=== PATIENT | female | born 1995 | race Two or more races ===

== ENCOUNTER 2024-01-29 04:38 | Inpatient (IN) | payer MEDICAID, OTHER ==
[~2024-01-29] VITALS: Ht 167.6 cm; Wt 77.8 kg
[2024-01-29 06:21] LABS: Chloride 110 mmol/L (98-107); Potassium 4.1 mmol/L (3.5-5.1); Sodium 146 mmol/L (136-145)
[2024-01-29 06:22] LABS: Anion Gap 13 (5-15); Calcium 10.1 mg/dL (8.7-10.4); Carbon Dioxide 23 mmol/L (20-31)
[2024-01-29 06:27] LABS: BUN/Creatinine Ratio 11.1 (10.0-20.0); Blood Urea Nitrogen 8 mg/dL (9-23); Glucose 116 mg/dL (74-106)
[2024-01-29 06:28] LABS: Blood Alcohol 161.8 mg/dL (<10)
[2024-01-29] MEDS: MORPHINE SULFATE 4 MG/ML SYR/VIAL IV ONE ×2 (06:57→12:26)
[2024-01-29] MEDS: ONDANSETRON HCL 4 MG/2 ML VIAL IV ONE ×2 (07:00→12:26)
[2024-01-29 07:40] VITALS: PULSE 113; RESP 21; O2SAT 92
[2024-01-29 07:47] LABS: Basophils # (auto) 0 10 ^3/uL (0-0.2); Basophils % (auto) 0.1 % (0.0-2.0); Eosinophils # (auto) 0 10 ^3/uL (0-0.8); Hematocrit 42.7 % (36.0-46.0); Lymphocytes # (auto) 1.4 10 ^3/uL (0.4-5.4); Lymphocytes % (auto) 10.9 % (10.0-50.0); Mean Corpuscular Hemoglobin 33.4 pg (28.0-32.0); Mean Corpuscular Hgb Conc. 35.1 g/dL (32.0-36.0); Mean Corpuscular Volume 95.1 fL (80.0-100.0); Monocytes # (auto) 0.6 10 ^3/uL (0-1.3); Monocytes % (auto) 4.8 % (0.0-12.0); Neutrophils # (auto) 10.9 10 ^3/uL (1.6-8.6); Neutrophils % (auto) 84.2 % (37.0-80.0); Nucleated Red Blood Cells % 0.1 %; Platelet Count (auto) 314 10^3/uL (140-450); Red Cell Distribution Width 12.9 % (11.8-14.3); White Blood Cell 12.9 10^3/uL (4.4-10.8)
[2024-01-29 07:53] VITALS: RESP 16; O2SAT 98
[2024-01-29 08:01] LABS: Amphetamine Screen, Urine Neg (NEGATIVE); Benzodiazephine Screen, Urine Neg (NEGATIVE); Cocaine Screen, Urine Neg (NEGATIVE); Opiate Scree,Urine Neg (NEGATIVE)
[2024-01-29 08:02] LABS: Cannabinoid Screen, Urine Neg (NEGATIVE); Phencyclidine Screen, Urine Neg (NEGATIVE)
[2024-01-29 08:08] LABS: Alanine Aminotransferase 29 U/L (7-40); Albumin 4.9 g/dL (3.2-4.8); Alkaline Phosphatase 117 U/L (46-116); Anion Gap 10 (5-15); Aspartate Aminotransferase 30 U/L (13-40); BUN/Creatinine Ratio 9.4 (10.0-20.0); Blood Urea Nitrogen 6 mg/dL (9-23); Calcium 9.6 mg/dL (8.7-10.4); Carbon Dioxide 23 mmol/L (20-31); Chloride 110 mmol/L (98-107); Glucose 119 mg/dL (74-106); Potassium 4.2 mmol/L (3.5-5.1); Sodium 143 mmol/L (136-145)
[2024-01-29 08:09] LABS: Bilirubin, Total 0.4 mg/dL (0.2-1.0); Total Protein 7.6 g/dL (5.7-8.2)
[2024-01-29] MEDS: IOHEXOL 300 MG/ML 100ML BOTTLE IJ ONE (08:49)
[2024-01-29 09:01] LABS: Barbiturate Scree,Urine Neg (NEGATIVE)
[2024-01-29] MEDS: SODIUM CHLORIDE 0.9% 1,000 ML IV ONE ×2 (10:30→11:28)
[2024-01-29] MEDS ORDERED: DOCUSATE SOD 100 MG CAP PO PRN (13:15)
[2024-01-29] MEDS ORDERED: LORazepam 2MG/ML-1ML VIAL IV PRN (13:15)
[2024-01-29] MEDS ORDERED: ONDANSETRON HCL 4 MG/2 ML VIAL IV PRN (13:15)
[2024-01-29] MEDS ORDERED: SODIUM CHLORIDE 0.9% 1,000 ML IV SCH (13:15)
[2024-01-29] MEDS ORDERED: NITROGLYCERIN 0.4 MG SL TAB SL PRN (13:15)
[2024-01-29] MEDS: chlordiazePOXIDE HCL 25 MG CAP PO SCH (13:41)
[2024-01-29] MEDS: ENOXAPARIN SOD 40 MG/0.4 ML SYRINGE SC SCH (13:41)
[2024-01-29 17:14] VITALS: BP 117/74; PULSE 76; RESP 18; TEMP 98.5; O2SAT 96
[2024-01-29 17:32] VITALS: BP 116/77; PULSE 82; RESP 19; TEMP 98.1; O2SAT 98
[2024-01-29] MEDS: SODIUM CHLORIDE 0.9% 1,000 ML IV SCH (17:38)
[2024-01-29] MEDS: FOLIC ACID 1 MG, MAGNESIUM SULF SDV 50% 8 MEQ, MULTIPLE VITAMIN 10 ML, THIAMINE INJ 100... INJ SCH (17:38)
[2024-01-29 20:00] VITALS: PULSE 80; RESP 18; O2SAT 95
[2024-01-29 21:00] VITALS: BP 120/70; PULSE 80; RESP 19; TEMP 98; O2SAT 95
[2024-01-29] MEDS: MORPHINE SULFATE INJ 2 MG/ml SYRG IV PRN (21:36)
[2024-01-30] VITALS (7 sets, daily range): BP systolic 94–117; BP diastolic 57–70; PULSE 71–84; RESP 16–20; TEMP 97.9–98.6; O2SAT 95–99
[2024-01-30 06:03] LABS: Basophils # (auto) 0 10 ^3/uL (0-0.2); Basophils % (auto) 0.6 % (0.0-2.0); Eosinophils # (auto) 0 10 ^3/uL (0-0.8); Eosinophils % (auto) 0.8 % (0.0-7.0); Hematocrit 36.7 % (36.0-46.0); Hemoglobin 12.9 g/dL (12.2-16.2); Lymphocytes # (auto) 1.9 10 ^3/uL (0.4-5.4); Mean Corpuscular Hemoglobin 33.5 pg (28.0-32.0); Mean Corpuscular Hgb Conc. 35.1 g/dL (32.0-36.0); Mean Corpuscular Volume 95.5 fL (80.0-100.0); Monocytes # (auto) 0.5 10 ^3/uL (0-1.3); Monocytes % (auto) 9.4 % (0.0-12.0); Neutrophils # (auto) 3.1 10 ^3/uL (1.6-8.6); Neutrophils % (auto) 55.2 % (37.0-80.0); Platelet Count (auto) 222 10^3/uL (140-450); Red Blood Cells 3.84 10^6/uL (4.0-5.20); Red Cell Distribution Width 12.9 % (11.8-14.3); White Blood Cell 5.6 10^3/uL (4.4-10.8)
[2024-01-30 06:24] LABS: Alanine Aminotransferase 19 U/L (7-40); Alkaline Phosphatase 100 U/L (46-116)
[2024-01-30 06:25] LABS: Albumin 3.8 g/dL (3.2-4.8); Anion Gap 7 (5-15); Aspartate Aminotransferase 10 U/L (13-40); BUN/Creatinine Ratio 8.6 (10.0-20.0); Bilirubin, Total 0.7 mg/dL (0.2-1.0); Blood Urea Nitrogen 5 mg/dL (9-23); Carbon Dioxide 24 mmol/L (20-31); Chloride 111 mmol/L (98-107); Glucose 98 mg/dL (74-106); Potassium 3.6 mmol/L (3.5-5.1); Sodium 142 mmol/L (136-145); Total Protein 5.8 g/dL (5.7-8.2)
[2024-01-30] MEDS: chlordiazePOXIDE HCL 25 MG CAP PO SCH (09:37)
[2024-01-31 01:00] VITALS: BP 138/71; PULSE 65; RESP 18; TEMP 98.3; O2SAT 98
[2024-01-31 05:00] VITALS: BP 107/62; PULSE 67; RESP 16; TEMP 98.1; O2SAT 98
[2024-01-31 07:10] LABS: Anion Gap 9 (5-15); Carbon Dioxide 23 mmol/L (20-31); Chloride 109 mmol/L (98-107); Potassium 3.6 mmol/L (3.5-5.1); Sodium 141 mmol/L (136-145)
[2024-01-31 07:11] LABS: Calcium 9.5 mg/dL (8.7-10.4)
[2024-01-31 07:16] LABS: BUN/Creatinine Ratio 12.1 (10.0-20.0); Blood Urea Nitrogen 7 mg/dL (9-23); Glucose 100 mg/dL (74-106)
[2024-01-31 07:18] LABS: Basophils # (auto) 0 10 ^3/uL (0-0.2); Basophils % (auto) 0.5 % (0.0-2.0); Eosinophils # (auto) 0.1 10 ^3/uL (0-0.8); Eosinophils % (auto) 1.2 % (0.0-7.0); Hematocrit 37.5 % (36.0-46.0); Hemoglobin 13.3 g/dL (12.2-16.2); Lymphocytes # (auto) 1.7 10 ^3/uL (0.4-5.4); Lymphocytes % (auto) 33.9 % (10.0-50.0); Mean Corpuscular Hemoglobin 34.3 pg (28.0-32.0); Mean Corpuscular Hgb Conc. 35.5 g/dL (32.0-36.0); Mean Corpuscular Volume 96.6 fL (80.0-100.0); Monocytes # (auto) 0.5 10 ^3/uL (0-1.3); Monocytes % (auto) 9.6 % (0.0-12.0); Neutrophils # (auto) 2.8 10 ^3/uL (1.6-8.6); Neutrophils % (auto) 54.8 % (37.0-80.0); Platelet Count (auto) 217 10^3/uL (140-450); Red Blood Cells 3.88 10^6/uL (4.0-5.20); Red Cell Distribution Width 12.6 % (11.8-14.3); White Blood Cell 5.1 10^3/uL (4.4-10.8)
[2024-01-31 08:00] VITALS: PULSE 64; RESP 16; O2SAT 98
[2024-01-31] MEDS ORDERED: chlordiazePOXIDE HCL 25 MG CAP PO SCH (10:00)
[2024-01-31 13:00] VITALS: BP 110/61; PULSE 91; RESP 17; TEMP 98; O2SAT 97
[2024-01-31 17:00] VITALS: BP 103/64; PULSE 72; RESP 16; TEMP 97.6; O2SAT 96
[2024-01-31 21:00] VITALS: BP 101/64; PULSE 68; RESP 18; TEMP 98.2; O2SAT 99
[2024-02-01 01:00] VITALS: BP 99/59; PULSE 61; RESP 18; TEMP 98.1; O2SAT 99
[2024-02-01 05:00] VITALS: BP 97/55; PULSE 61; RESP 19; TEMP 97.9; O2SAT 96
[2024-02-01 05:57] LABS: INR 1.04 (0.9-1.15); Partial Thromboplastin Time 27.1 SEC (24.5-34.5)
[2024-02-01 06:01] LABS: Basophils # (auto) 0 10 ^3/uL (0-0.2); Basophils % (auto) 0.6 % (0.0-2.0); Eosinophils # (auto) 0.1 10 ^3/uL (0-0.8); Eosinophils % (auto) 1.5 % (0.0-7.0); Hematocrit 41.3 % (36.0-46.0); Hemoglobin 14.6 g/dL (12.2-16.2); Lymphocytes # (auto) 1.9 10 ^3/uL (0.4-5.4); Lymphocytes % (auto) 36.2 % (10.0-50.0); Mean Corpuscular Hemoglobin 33.4 pg (28.0-32.0); Mean Corpuscular Hgb Conc. 35.5 g/dL (32.0-36.0); Mean Corpuscular Volume 94.2 fL (80.0-100.0); Monocytes # (auto) 0.5 10 ^3/uL (0-1.3); Neutrophils # (auto) 2.7 10 ^3/uL (1.6-8.6); Neutrophils % (auto) 52.7 % (37.0-80.0); Nucleated Red Blood Cells % 0.2 %; Platelet Count (auto) 264 10^3/uL (140-450); Red Blood Cells 4.38 10^6/uL (4.0-5.20); Red Cell Distribution Width 12.6 % (11.8-14.3); White Blood Cell 5.1 10^3/uL (4.4-10.8)
[2024-02-01 06:19] LABS: Calcium 9.9 mg/dL (8.7-10.4); Chloride 105 mmol/L (98-107); Potassium 3.7 mmol/L (3.5-5.1); Sodium 140 mmol/L (136-145)
[2024-02-01 06:20] LABS: Anion Gap 8 (5-15); Carbon Dioxide 27 mmol/L (20-31)
[2024-02-01 06:25] LABS: BUN/Creatinine Ratio 16.1 (10.0-20.0); Blood Urea Nitrogen 10 mg/dL (9-23); Glucose 97 mg/dL (74-106)
[2024-02-01] MEDS ORDERED: chlordiazePOXIDE HCL 25 MG CAP PO SCH (07:00)
[2024-02-01 08:00] VITALS: PULSE 59; RESP 16; O2SAT 99
[2024-02-01 09:00] VITALS: BP 95/50; PULSE 59; RESP 16; TEMP 98; O2SAT 99
[2024-02-01] MEDS ORDERED: fentaNYL CITRATE 100 MCG/2 ML VL ONE (09:36)
[2024-02-01] MEDS ORDERED: HYDROmorphone HCL 2 MG/ML VL/or syr ONE (09:36)
[2024-02-01] MEDS ORDERED: MIDAZOLAM HCL 2MG/2ML 2ml VIAL (1mg/ml) ONE (09:36)
[2024-02-01] MEDS: ceFAZolin 1GM/50ML 100 ML IV ONE (10:50)
[2024-02-01] MEDS ORDERED: hydrALAZINE HCL 20 MG/ML VL IV PRN (11:00)
[2024-02-01] MEDS ORDERED: ePHEDrine SULFATE 50 MG/ML AMP IV PRN ×2 (11:00→13:45)
[2024-02-01] MEDS ORDERED: MIDAZOLAM HCL 2MG/2ML 2ml VIAL (1mg/ml) IV PRN ×2 (11:00→13:45)
[2024-02-01] MEDS ORDERED: MORPHINE SULFATE 4 MG/ML SYR/VIAL IV PRN ×2 (11:00→13:45)
[2024-02-01] MEDS: levoFLOXacin 500MG 100 ML IV ONE ×2 (11:35→16:22)
[2024-02-01] MEDS ORDERED: SUGAMMADEX 200mg/2ml Vial (100MG/ML) IV ONE (12:03)
[2024-02-01] MEDS ORDERED: NITROGLYCERIN 0.4 MG SL TAB SL PRN (12:30)
[2024-02-01] MEDS ORDERED: MORPHINE SULFATE INJ 2 MG/ml SYRG IV PRN (12:30)
[2024-02-01] MEDS ORDERED: ONDANSETRON HCL 4 MG/2 ML VIAL IV PRN (12:30)
[2024-02-01] MEDS ORDERED: ACETAMINOPHEN 325 MG TAB PO PRN (12:30)
[2024-02-01] MEDS: HYDROmorphone HCL 2 MG/ML VL/or syr IV PRN (13:10)
[2024-02-01] MEDS ORDERED: HYDROmorphone HCL 2 MG/ML VL/or syr IV PRN (13:45)
[2024-02-01] MEDS ORDERED: ceFAZolin 1GM/50ML 50 ML IV SCH (14:00)
[2024-02-01] MEDS: CYCLOBENZAPRINE HCL 10 MG TAB PO SCH (14:26)
[2024-02-01] MEDS: D5W/SOD CHLO 0.9% 1,000 ML IV SCH (14:26)
[2024-02-01] MEDS: TRANEXAMIC ACID 20 ML ONE (16:21)
[2024-02-01] MEDS: ONDANSETRON HCL 4 MG/2 ML VIAL IV ONE ×2 (16:21→16:22)
[2024-02-01] MEDS: KETOROLAC TROMETH 30 MG/ML 1ML VIAL IV ONE ×2 (16:21→16:22)
[2024-02-01] MEDS: LIDOCAINE W/ EPINEPHRINE 1% 20ML VIAL ONE (16:21)
[2024-02-01] MEDS: diazePAM 5 MG TAB PO ONE (16:22)
[2024-02-01 17:00] VITALS: BP 102/47; PULSE 88; RESP 16; TEMP 98.1; O2SAT 100
[2024-02-01] MEDS: ceFAZolin 1GM/50ML 50 ML IV SCH (18:43)
[2024-02-01] MEDS: HYDROcodone-ACET 10/325MG TAB PO PRN (18:43)
[2024-02-01 21:00] VITALS: BP 104/51; PULSE 76; RESP 18; TEMP 98.3; O2SAT 96
[2024-02-01] MEDS: DOCUSATE SOD 100 MG CAP PO SCH (21:07)
[2024-02-02 01:00] VITALS: BP 93/43; PULSE 58; RESP 18; TEMP 98.3; O2SAT 98
[2024-02-02 05:00] VITALS: BP 95/48; PULSE 72; RESP 18; TEMP 98.2; O2SAT 98
[2024-02-02 07:06] LABS: Basophils # (auto) 0 10 ^3/uL (0-0.2); Basophils % (auto) 0.1 % (0.0-2.0); Eosinophils # (auto) 0 10 ^3/uL (0-0.8); Hematocrit 40.1 % (36.0-46.0); Hemoglobin 14.3 g/dL (12.2-16.2); Mean Corpuscular Hemoglobin 33.8 pg (28.0-32.0); Mean Corpuscular Hgb Conc. 35.5 g/dL (32.0-36.0); Mean Corpuscular Volume 95.1 fL (80.0-100.0); Monocytes # (auto) 0.8 10 ^3/uL (0-1.3); Monocytes % (auto) 7.7 % (0.0-12.0); Neutrophils # (auto) 8.2 10 ^3/uL (1.6-8.6); Neutrophils % (auto) 82.2 % (37.0-80.0); Platelet Count (auto) 287 10^3/uL (140-450); Red Blood Cells 4.22 10^6/uL (4.0-5.20); Red Cell Distribution Width 12.5 % (11.8-14.3)
[2024-02-02 07:31] LABS: Anion Gap 8 (5-15); Carbon Dioxide 25 mmol/L (20-31); Chloride 107 mmol/L (98-107); Potassium 3.9 mmol/L (3.5-5.1); Sodium 140 mmol/L (136-145)
[2024-02-02 07:32] LABS: Calcium 9.7 mg/dL (8.7-10.4)
[2024-02-02 07:37] LABS: BUN/Creatinine Ratio 8.1 (10.0-20.0); Blood Urea Nitrogen 5 mg/dL (9-23); Glucose 161 mg/dL (74-106)
[2024-02-02 08:37] VITALS: BP 98/52; PULSE 62; RESP 16; TEMP 97.9; O2SAT 99
[2024-02-02 13:11] VITALS: BP 98/52; PULSE 68; RESP 16; TEMP 98.1; O2SAT 99
[2024-02-02] MEDS: MORPHINE SULFATE INJ 2 MG/ml SYRG IV PRN (18:23)
[2024-02-02 20:00] VITALS: PULSE 72; RESP 20; O2SAT 98
[2024-02-02 21:00] VITALS: BP 102/55; PULSE 72; RESP 19; TEMP 98; O2SAT 98
[2024-02-03] VITALS (7 sets, daily range): BP systolic 97–108; BP diastolic 47–63; PULSE 63–78; RESP 16–20; TEMP 97.6–99.1; O2SAT 94–99
[2024-02-03 06:38] LABS: Basophils # (auto) 0 10 ^3/uL (0-0.2); Basophils % (auto) 0.6 % (0.0-2.0); Eosinophils # (auto) 0 10 ^3/uL (0-0.8); Eosinophils % (auto) 0.4 % (0.0-7.0); Hematocrit 35.7 % (36.0-46.0); Hemoglobin 12.7 g/dL (12.2-16.2); Lymphocytes # (auto) 2.4 10 ^3/uL (0.4-5.4); Mean Corpuscular Hemoglobin 33.9 pg (28.0-32.0); Mean Corpuscular Hgb Conc. 35.5 g/dL (32.0-36.0); Mean Corpuscular Volume 95.4 fL (80.0-100.0); Monocytes # (auto) 0.5 10 ^3/uL (0-1.3); Monocytes % (auto) 8.7 % (0.0-12.0); Neutrophils # (auto) 3.3 10 ^3/uL (1.6-8.6); Neutrophils % (auto) 52.3 % (37.0-80.0); Platelet Count (auto) 236 10^3/uL (140-450); Red Blood Cells 3.74 10^6/uL (4.0-5.20); Red Cell Distribution Width 12.7 % (11.8-14.3); White Blood Cell 6.3 10^3/uL (4.4-10.8)
[2024-02-03 06:46] LABS: Chloride 110 mmol/L (98-107); Potassium 3.7 mmol/L (3.5-5.1); Sodium 143 mmol/L (136-145)
[2024-02-03 06:47] LABS: Anion Gap 7 (5-15); Calcium 9.4 mg/dL (8.7-10.4); Carbon Dioxide 26 mmol/L (20-31)
[2024-02-03 06:52] LABS: BUN/Creatinine Ratio 13.7 (10.0-20.0); Blood Urea Nitrogen 7 mg/dL (9-23); Glucose 109 mg/dL (74-106)
[2024-02-04 01:05] VITALS: BP 94/44; PULSE 72; RESP 17; TEMP 98; O2SAT 96
[2024-02-04 07:04] LABS: Anion Gap 8 (5-15); Calcium 9.5 mg/dL (8.7-10.4); Carbon Dioxide 22 mmol/L (20-31); Chloride 108 mmol/L (98-107); Sodium 138 mmol/L (136-145)
[2024-02-04 07:05] LABS: Basophils # (auto) 0 10 ^3/uL (0-0.2); Basophils % (auto) 0.6 % (0.0-2.0); Eosinophils # (auto) 0.1 10 ^3/uL (0-0.8); Eosinophils % (auto) 0.9 % (0.0-7.0); Hematocrit 40.8 % (36.0-46.0); Lymphocytes # (auto) 2.4 10 ^3/uL (0.4-5.4); Lymphocytes % (auto) 39.7 % (10.0-50.0); Mean Corpuscular Hemoglobin 33.8 pg (28.0-32.0); Mean Corpuscular Hgb Conc. 34.4 g/dL (32.0-36.0); Mean Corpuscular Volume 98.1 fL (80.0-100.0); Monocytes # (auto) 0.7 10 ^3/uL (0-1.3); Monocytes % (auto) 11.4 % (0.0-12.0); Neutrophils # (auto) 2.9 10 ^3/uL (1.6-8.6); Neutrophils % (auto) 47.4 % (37.0-80.0); Nucleated Red Blood Cells % 0.1 %; Platelet Count (auto) 238 10^3/uL (140-450); Red Blood Cells 4.16 10^6/uL (4.0-5.20); Red Cell Distribution Width 12.9 % (11.8-14.3); White Blood Cell 6.1 10^3/uL (4.4-10.8)
[2024-02-04 07:10] LABS: Glucose 96 mg/dL (74-106)
[2024-02-04 07:12] LABS: BUN/Creatinine Ratio 10.4 (10.0-20.0); Blood Urea Nitrogen < 5 mg/dL (9-23)
[2024-02-04] MEDS: MORPHINE SULFATE INJ 2 MG/ml SYRG IV PRN (08:02)
[2024-02-04 08:30] VITALS: BP 105/67; PULSE 77; RESP 16; TEMP 98; O2SAT 100
[2024-02-04 13:00] VITALS: BP 99/58; PULSE 83; RESP 18; TEMP 97.9; O2SAT 99
[2024-02-04 16:36] VITALS: BP 112/54; PULSE 93; RESP 16; TEMP 98.2; O2SAT 99
[2024-02-04 21:00] VITALS: BP 103/53; PULSE 83; RESP 20; TEMP 97.9; O2SAT 100
[2024-02-05 01:00] VITALS: BP 108/53; PULSE 80; RESP 18; TEMP 98.3; O2SAT 100
[2024-02-05 05:00] VITALS: BP 118/50; PULSE 86; RESP 19; TEMP 98.7; O2SAT 97
[2024-02-05 06:35] LABS: Basophils # (auto) 0 10 ^3/uL (0-0.2); Basophils % (auto) 0.6 % (0.0-2.0); Eosinophils # (auto) 0.1 10 ^3/uL (0-0.8); Eosinophils % (auto) 1.5 % (0.0-7.0); Hematocrit 37.7 % (36.0-46.0); Hemoglobin 13.1 g/dL (12.2-16.2); Lymphocytes % (auto) 38.6 % (10.0-50.0); Mean Corpuscular Hemoglobin 33.2 pg (28.0-32.0); Mean Corpuscular Hgb Conc. 34.6 g/dL (32.0-36.0); Mean Corpuscular Volume 95.7 fL (80.0-100.0); Monocytes # (auto) 0.5 10 ^3/uL (0-1.3); Monocytes % (auto) 9.3 % (0.0-12.0); Neutrophils # (auto) 2.6 10 ^3/uL (1.6-8.6); Nucleated Red Blood Cells % 0.1 %; Platelet Count (auto) 255 10^3/uL (140-450); Red Blood Cells 3.94 10^6/uL (4.0-5.20); Red Cell Distribution Width 12.8 % (11.8-14.3); White Blood Cell 5.2 10^3/uL (4.4-10.8)
[2024-02-05 06:47] LABS: Chloride 107 mmol/L (98-107); Potassium 3.8 mmol/L (3.5-5.1); Sodium 139 mmol/L (136-145)
[2024-02-05 06:49] LABS: Calcium 9.4 mg/dL (8.7-10.4)
[2024-02-05 06:53] LABS: Anion Gap 7 (5-15); BUN/Creatinine Ratio 13.7 (10.0-20.0); Blood Urea Nitrogen 7 mg/dL (9-23); Carbon Dioxide 25 mmol/L (20-31); Glucose 107 mg/dL (74-106)
[2024-02-05 08:58] VITALS: BP 102/56; PULSE 80; RESP 20; TEMP 98.2; O2SAT 96
[2024-02-05 12:33] VITALS: BP 106/53; PULSE 94; RESP 20; TEMP 98.3; O2SAT 99
[2024-02-05 17:38] VITALS: BP 105/57; PULSE 110; RESP 20; TEMP 98.1; O2SAT 97
[2024-02-05 20:00] VITALS: PULSE 90; RESP 20; O2SAT 97
[2024-02-06 01:27] VITALS: BP 107/64; PULSE 90; RESP 18; TEMP 98; O2SAT 99
[2024-02-06 05:00] VITALS: BP 96/56; PULSE 73; RESP 17; TEMP 97.9; O2SAT 96
[2024-02-06 06:51] LABS: Basophils # (auto) 0 10 ^3/uL (0-0.2); Basophils % (auto) 0.7 % (0.0-2.0); Eosinophils # (auto) 0.1 10 ^3/uL (0-0.8); Hematocrit 36.5 % (36.0-46.0); Hemoglobin 12.9 g/dL (12.2-16.2); Lymphocytes # (auto) 2.1 10 ^3/uL (0.4-5.4); Lymphocytes % (auto) 38.6 % (10.0-50.0); Mean Corpuscular Hemoglobin 33.5 pg (28.0-32.0); Mean Corpuscular Hgb Conc. 35.4 g/dL (32.0-36.0); Mean Corpuscular Volume 94.7 fL (80.0-100.0); Monocytes # (auto) 0.5 10 ^3/uL (0-1.3); Monocytes % (auto) 9.8 % (0.0-12.0); Neutrophils # (auto) 2.7 10 ^3/uL (1.6-8.6); Neutrophils % (auto) 48.9 % (37.0-80.0); Platelet Count (auto) 265 10^3/uL (140-450); Red Blood Cells 3.85 10^6/uL (4.0-5.20); Red Cell Distribution Width 12.9 % (11.8-14.3); White Blood Cell 5.4 10^3/uL (4.4-10.8)
[2024-02-06 07:03] LABS: Chloride 105 mmol/L (98-107); Potassium 3.7 mmol/L (3.5-5.1); Sodium 138 mmol/L (136-145)
[2024-02-06 07:04] LABS: Anion Gap 6 (5-15); Carbon Dioxide 27 mmol/L (20-31)
[2024-02-06 07:05] LABS: Calcium 9.8 mg/dL (8.7-10.4)
[2024-02-06 07:09] LABS: BUN/Creatinine Ratio 16.4 (10.0-20.0); Blood Urea Nitrogen 9 mg/dL (9-23); Glucose 118 mg/dL (74-106)
[2024-02-06 09:00] VITALS: BP 98/61; PULSE 71; RESP 18; TEMP 98.7; O2SAT 97
[2024-02-06 13:00] VITALS: BP 99/55; PULSE 92; RESP 17; TEMP 99; O2SAT 97
[2024-02-06] MEDS ORDERED: HYDR-4902 PO (14:25)
[2024-02-06] MEDS ORDERED: CYCL-839 PO (19:14)
== END 2024-02-06 17:43 | disposition home health service (06) | DRG 304 ==
LOC: ER 04:38 → EDBD 04:38 → OVERFLOW 13:06 → WEST WING 17:14
PROVIDERS: ADMIT Internal Medicine Geriatric Medicine; ATTEND Internal Medicine Geriatric Medicine
PROC: 4A11X4G Monitoring of Peripheral Nervous Electrical Activity, Intraoperative, External Approach (ICD-10-PCS; 2024-02-01)
PROC: 0SG1071 Fusion of 2 or more Lumbar Vertebral Joints with Autologous Tissue Substitute, Posterior Approach, Posterior Column, Open Approach (ICD-10-PCS; principal; 2024-02-01 10:02)
DX: S32.031A Stable burst fracture of third lumbar vertebra, initial encounter for closed fracture (principal); R65.10 Systemic inflammatory response syndrome (SIRS) of non-infectious origin without acute organ dysfunction; M41.86 Other forms of scoliosis, lumbar region; S32.038A Other fracture of third lumbar vertebra, initial encounter for closed fracture; F10.129 Alcohol abuse with intoxication, unspecified; J98.11 Atelectasis; Z79.899 Other long term (current) drug therapy; V49.9XXA Car occupant (driver) (passenger) injured in unspecified traffic accident, initial encounter; Y93.89 Activity, other specified; Y92.410 Unspecified street and highway as the place of occurrence of the external cause; Y99.8 Other external cause status; Y90.6 Blood alcohol level of 120-199 mg/100 ml
CPT/HCPCS: 36415; 70450; 71046; 71260; 72148; 74177; 80048; 80053; 80307; 80320; 84484; 84702; 85025; 85610; 85730; 86850; 86900; 86901; 97110; 97116; 97163; 97530; G0378; J1956; J2250; J2405; J7042

== ENCOUNTER 2024-03-31 04:48 | Emergency (ER) | payer MEDICAID, OTHER ==
[~2024-03-31] VITALS: Ht 167.6 cm; Wt 72.7 kg
[~2024-03-31 04:48] MED LIST: CYCL-839 PO; HYDR-4902 PO
[2024-03-31] MEDS: KETOROLAC TROMETH 30 MG/ML 1ML VIAL IM ONE (05:06)
--- NOTE | 2024-03-31 05:17 | ED.PDOC ---
General HPI Comments 28-year-old female who came to ER due to flank pains. Patient states for the past few hours she has been experiencing constant, stabbing, right flank pains, radiating down her right lower quadrant. Noted bouts of nausea, vomiting, dysuria and gross hematuria. Patient does have history of kidney stones, and she states she feels like her kidney stones are acting up again. Denies any history of abdominal surgery. Chief Complaint: Flank pain Time Seen by MD: 05:14 Reviewed notes: Nurses Notes Allergies: Coded Allergies: NO KNOWN ALLERGIES (Unverified , 01/29/24) Home Meds Active Scripts Cyclobenzaprine Hcl (Cyclobenzaprine Hcl) 10 Mg Tab, 10 MG PO TIDPRN PRN for 30 Days, #30 TAB Prov:JOSE GARCIA MD 02/06/24 Hydrocodone-Acetaminophen (Hydrocodone Bitartrate/AC 5-325 mg) 1 Tab Tab, 1 TAB PO Q6HPRN PRN for 30 Days, #30 TAB Prov:JOSE GARCIA MD 02/06/24 Information Source: Patient Mode of Arrival: Ambulatory Severity: Moderate Inability to void: Moderate Timing: Hours Duration: Since onset Has not urinated for: Hours Prehospital treatment: None Onset: Spontaneous Symptoms: Dysuria, Urgency, Hematuria, Inability to void History of: Kidney stone Location: Suprapubic, (R) Flank Review of Systems: REVIEW OF SYSTEMS: No fever, no chills, or fatigue HEENT: No sore throat, no earache, no congestion, no neck pain. Cardiac: No chest pain. No palpitations. Lungs: No shortness of breath, no cough. GI: (+) nausea and vomiting, no diarrhea, no constipation, no abdominal pain : (+)dysuria, frequency, or urgency. (+) hematuria. (+) flank pains Musculoskeletal: No joint pain , no joint swelling, no extremity edema. Skin: No rash, no itching. Neuro: No headache, no dizziness, no weakness Vital Signs Vital Signs Date Time Temp Pulse Resp B/P (MAP) Pulse Ox O2 Delivery O2 Flow Rate FiO2 03/31/24 05:30 91 20 108/56 (73) 98 03/31/24 05:30 Room Air* 0 21 03/31/24 05:00 99.1 Physical Exam General: Awake, alert and oriented. No acute distress. Skin: Skin in warm, dry and intact. Appropriate color for ethnicity. Nailbeds pink with no cyanosis. HEENT: The head is normocephalic and atraumatic. Conjunctivae are clear without exudates or hemorrhage. Sclera is non-icteric. EOM are intact. No signs of nysta gmus. Eyelids are normal in appearance without swelling or lesions. Oral mucosa is pink and moist Neck: The neck is supple with normal range of motion. No JVD. Cardiac: Heart rate and rhythm are normal. No murmurs, gallops, or rubs are auscultated. Respiratory: No signs of respiratory distress. Lung sounds are clear in all lobes bilaterally without rales, rhonchi, or wheezes. Abdominal: Abdomen is soft, with right lower quadrant tenderness and positive kidney punch in the right. Extremities: Upper and lower extremities are atraumatic in appearance without deformity or edema. Neurological: The patient is awake, alert and oriented to person, place, and time with normal speech. Speech is clear. There is no facial asymmetry. Psychiatric: Appropriate mood and affect. Good judgement and insight. No visual or auditory hallucinations. Past Medical History PAST MEDICAL HISTORY: Kidney Stones Past Medical History (Other): L3 fracture Surgical History: Denies all surgeries Surgical History (Other): Open reduction internal fixation of L3 burst fracture HOME VISITOR HOME BASE HEAD START History: No Pertinent HOME VISITOR HOME BASE HEAD START History Family History Family History: Reviewed,noncontributory to illness, Unknown Social History Smoker: Non-Smoker Alcohol: Occasionally Drugs: Denies Drug Use Lives In: Home Was a procedure done? Was a procedure done?: No Differential Diagnosis Kidney stone (Female): Musculoskeletal pain, Ovarian torsion, Pyelonephritis, Renal failure, Strain, Urinary obstruction, Urolithiasis Urinary Problem (Female): Pyelonephritis, Urinary retention, Urolithiasis, UTI, Vaginitis X-Ray, Labs, Meds, VS Vital Signs Date Time Temp Pulse Resp B/P (MAP) Pulse Ox O2 Delivery O2 Flow Rate FiO2 03/31/24 05:30 91 20 108/56 (73) 98 03/31/24 05:30 91 20 98 Room Air* 0 21 03/31/24 05:00 99.1 91 20 108/56 (73) 98 Lab Test 03/31/24 04:56 Range/Units Urine Color Yellow Yellow Urine Clarity Ex.turbid Clear Urine pH 7.5 5.0-9.0 Urine Specific [place] 1.032 1.001-1.035 Urine Protein 1+ H Negative Urine Ketones Trace Negative Urine Blood Trace H Negative /uL Urine Nitrite Negative Negative Urine Bilirubin Negative Negative Urine Urobilinogen Normal Negative mg/dL Urine Leukocyte Esterase 2+ Negative /uL Urine RBC 35 0 - 4 /hpf Urine WBC 30 0 - 5 /hpf Urine Squamous Epithelial Cells Mod <5 /hpf Urine Amorphous Crystals Few None Seen /hpf Urine Bacteria Few H None Seen /hpf Urine Mucus Few None Seen Urine Glucose Normal Normal mg/dL Urine Test Negative Negative Current Medications Medications (Trade) Dose Ordered Sig/Pedro Route Start Time Stop Time Status Last Admin Ketorolac Tromethamine (Toradol Injection) 45 mg ONCE ONCE IM 03/31/24 05:00 03/31/24 05:01 DC 03/31/24 05:06 Time of 1ST Reevaluation: 05:09 Reevaluation 1ST: Unchanged Patient Education/Counseling: Diagnosis, Treatment Family Education/Counseling: No Family Present Departure 1 Departure Time of Disposition: 05:58 Impression: Primary Impression: Right flank pain Disposition: 30 STILL A PATIENT Condition: Stable Comments 28-year-old female with a right flank pain, history of kidney stones.. Pain improved, sinus oncoming provider pending CT abdomen and pelvis results. Critical Care Note Critical Care Time?: No Stability Stability form required: No Heart Score Heart Score: Heart Score Response (Comments) Value History N/A 0 EKG N/A 0 Age N/A 0 Risk Factors N/A 0 Troponin N/A 0 Total 0 I personally scribed for ANAM NEVAREZ MD ([email or web address]) on 03/31/24 at 05:17. Electronically submitted by Jonathan See ([email or web address]). ANAM NEVAREZ MD Mar 31, 2024 05:17
[2024-03-31 05:30] VITALS: PULSE 91; RESP 20; O2SAT 98
[2024-03-31 05:45] LABS: Urine Amorphous Crystal FEW /hpf (None Seen); Urine Bacteria FEW /hpf (None Seen); Urine Blood TRACE /uL (Negative); Urine Clarity Ex.Turbid (Clear); Urine Color Yellow (Yellow); Urine Mucus FEW (None Seen); Urine Protein, UAD 1+ (Negative); Urine Specific Gravity 1.032 (1.001-1.035); Urine Urobilinogen Normal (Negative); Urine WBC 30 /hpf (0 - 5); Urine pH 7.5 (5.0-9.0)
[2024-03-31] MEDS: SULFAMETHOX W/TRIMETH(800/160MG) DS TAB PO ONE (06:13)
--- NOTE | 2024-03-31 06:14 | DVH ---
Exam: CT CT AB PEL WO CON-NO ORAL OR IV History: Flank pain Comparison Study: None available at time of dictation. TECHNIQUE: Multidetector CT of the abdomen was performed from lung bases to pubic symphysis. Imaging was performed without IV contrast. Axial, coronal and sagittal multiplanar reformats were obtained fr om the axial data set by the technologist. Radiation Dose Information: CT Dose: CTDI volume is 25 mGy. Dose-length product is 250 mGy*cm FINDINGS: Evaluation of solid organs is limited due to lack of intravenous contrast use. Findings: Lung Bases: No acute or significant lung base finding. Normal heart size. No pleural or pericardial effusion. Liver: The liver is normal in size. No focal lesions. Gallbladder and Biliary Tree: Unremarkable Spleen: Unremarkable Pancreas: The pancreas is grossly normal in appearance. Adrenal Glands: Unremarkable Kidneys: Moderate right hydroureteronephrosis secondary to an obstructing 5 mm stone at the right UVJ . Additional punctate nonobstructing renal calculi in the right lower pole measuring to 4 mm. Bladder: Grossly unremarkable for degree of distention. Bowel: The stomach is grossly normal in appearance. Small bowel and colon are normal in caliber and d istribution. The appendix is not visualized; however, no secondary findings of acute appendicitis id entified. Ascites: Absent Lymphadenopathy: No mesenteric, retroperitoneal or periportal lymphadenopathy. Abdominal Wall and Mesentery: Unremarkable. Vasculature: The visualized abdominal aorta is normal in size and caliber. Evaluation of abdominal a nd pelvic vessels is limited due to lack of intravenous contrast. Pelvic Organs: Unremarkable Musculoskeletal: Postsurgical changes involving Soft tissues: Unremarkable IMPRESSION: Moderate right hydroureteronephrosis secondary to an obstructing 5 mm stone at the right UVJ. Radiation optimization: All CT scans at this facility use at least one of these dose optimization lizz hniques: automated exposure control mA and/or kV adjustment per patient size (includes targeted exam s where dose is matched to clinical indication) or iterative reconstruction.
[2024-03-31] MEDS ORDERED: CEPH500C PO (07:07)
[2024-03-31] MEDS ORDERED: IBUP-1455 PO (07:07)
[2024-03-31] MEDS ORDERED: ACET-1304 PO (07:07)
[2024-03-31] MEDS ORDERED: TAMS-35 PO (07:07)
[2024-03-31 07:30] VITALS: PULSE 71; RESP 16; O2SAT 99
[2024-03-31] MEDS: ONDANSETRON HCL 4 MG/2 ML VIAL IV ONE (07:45)
[2024-03-31] MEDS: MORPHINE SULFATE 4 MG/ML SYR/VIAL IV ONE (07:46)
[2024-03-31] MEDS: cefTRIAXone 1GM/50ML D5W 50 ML IV ONE (07:46)
[2024-03-31 08:12] VITALS: BP 123/70; PULSE 67; RESP 18
[2024-04-01 19:06] LABS: Chlamydia Trachomatis, NAA Negative (Negative); Neisseria gonorrhoeae, NAA Negative (Negative)
== END 2024-03-31 08:26 | disposition home or self-care (01) ==
LOC: ER 04:48
DX: R10.9 Unspecified abdominal pain (principal); Z87.81 Personal history of (healed) traumatic fracture; Z98.890 Other specified postprocedural states; Z79.899 Other long term (current) drug therapy
CPT/HCPCS: 74176; 81001; 81025; 87491; 87591; 96365; 96372; 96375; 99285; J0696; J1885; J2270; J2405

== ENCOUNTER 2024-07-25 16:24 | Emergency (ER) | payer MEDICAID ==
[~2024-07-25] VITALS: Ht 165.1 cm; Wt 70.1 kg
[~2024-07-25 16:24] MED LIST changes: +ACET-1304 PO; +CEPH500C PO; +IBUP-1455 PO; +TAMS-35 PO
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
[2024-07-25 17:23] VITALS: PULSE 96; RESP 20; O2SAT 95
[2024-07-25] MEDS: ONDANSETRON HCL 4 MG/2 ML VIAL IV ONE (17:34)
[2024-07-25] MEDS: SODIUM CHLORIDE 0.9% 1,000 ML IV ONE (17:35)
[2024-07-25] MEDS: ACETAMINOPHEN 325 MG TAB PO ONE (17:35)
[2024-07-25 17:49] LABS: Basophils # (auto) 0 10 ^3/uL (0-0.2); Basophils % (auto) 0.5 % (0.0-2.0); Eosinophils # (auto) 0 10 ^3/uL (0-0.8); Eosinophils % (auto) 0.1 % (0.0-7.0); Hemoglobin 13.8 g/dL (12.2-16.2); Lymphocytes # (auto) 0.7 10 ^3/uL (0.4-5.4); Lymphocytes % (auto) 16.4 % (10.0-50.0); Mean Corpuscular Hgb Conc. 34.4 g/dL (32.0-36.0); Mean Corpuscular Volume 95.9 fL (80.0-100.0); Monocytes # (auto) 0.7 10 ^3/uL (0-1.3); Monocytes % (auto) 16.5 % (0.0-12.0); Neutrophils # (auto) 2.8 10 ^3/uL (1.6-8.6); Neutrophils % (auto) 66.5 % (37.0-80.0); Nucleated Red Blood Cells % 0.1 %; Platelet Count (auto) 238 10^3/uL (140-450); Red Blood Cells 4.17 10^6/uL (4.0-5.20); Red Cell Distribution Width 12.6 % (11.8-14.3); White Blood Cell 4.2 10^3/uL (4.4-10.8)
[2024-07-25 18:08] LABS: Alanine Aminotransferase 20 U/L (7-40); Alkaline Phosphatase 88 U/L (46-116); Anion Gap 9 (5-15); BUN/Creatinine Ratio 18.5 (10.0-20.0); Blood Urea Nitrogen 12 mg/dL (9-23); Calcium 10.1 mg/dL (8.7-10.4); Carbon Dioxide 26 mmol/L (20-31); Chloride 104 mmol/L (98-107); Glucose 92 mg/dL (74-106); Potassium 3.8 mmol/L (3.5-5.1); Sodium 139 mmol/L (136-145)
[2024-07-25 18:10] LABS: Bilirubin, Total 0.5 mg/dL (0.2-1.0)
[2024-07-25 18:28] LABS: Urine Bacteria None Seen /hpf (None Seen)
[2024-07-25 18:32] LABS: Aspartate Aminotransferase 11 U/L (13-40)
[2024-07-25 18:51] LABS: Urine Amorphous Crystal FEW /hpf (None Seen); Urine Blood TRACE /uL (Negative); Urine Clarity Clear (Clear); Urine Color Light-Yellow (Yellow); Urine Protein, UAD TRACE (Negative); Urine Specific Gravity 1.023 (1.001-1.035); Urine Squamous Epithelial Cell FEW /hpf (<5); Urine Urobilinogen Normal (Negative); Urine WBC 1 /HPF (0-5); Urine pH 6.5 (5.0-9.0)
[2024-07-25] MEDS: KETOROLAC TROMETH 30 MG/ML 1ML VIAL IV ONE (18:56)
[2024-07-25] MEDS ORDERED: IBUP-1455 PO (19:59)
[2024-07-25] MEDS ORDERED: ACET-1304 PO (19:59)
[2024-07-25 20:00] VITALS: BP 97/76; PULSE 86; RESP 20; TEMP 98.1; O2SAT 98
[2024-07-26] MEDS ORDERED: OSEL75CA5 PO (18:03)
== END 2024-07-25 20:13 | disposition home or self-care (01) ==
LOC: ER 16:24
DX: S39.012A Strain of muscle, fascia and tendon of lower back, initial encounter (principal); V89.2XXA Person injured in unspecified motor-vehicle accident, traffic, initial encounter; Y93.I9 Activity, other involving external motion; Y92.488 Other paved roadways as the place of occurrence of the external cause; Y99.8 Other external cause status
CPT/HCPCS: 36415; 80053; 81001; 81025; 83605; 85025; 87040; 96361; 96374; 96375; 99284; J1885; J2405; J7030

== ENCOUNTER 2024-07-26 14:56 | Emergency (ER) | payer MEDICAID ==
[~2024-07-26] VITALS: Ht 165.1 cm; Wt 70.1 kg
--- NOTE | 2024-07-26 15:08 | ED.PDOC ---
History of Present Illness HPI Comments Bentley Burns: HPI: Poor Historian. 28-year-old female otherwise healthy presents to the emergency department for evaluation of three day history of viral like syndrome. She states having symptoms of generalized body aches, chills and diaphoresis, subjective fever, occasional headaches, nonproductive cough and runny nose. She denies any sick contacts. She said she came to the ER here yesterday for evaluation and they did not do anything for me and sent her home. Patient returns cancer symptoms persist. She took some ibuprofen at 9:00 a.m. this morning Past Medical History: Denies any Past Surgical History: Back surgery REVIEW OF SYSTEMS: CONSTITUTIONAL: Denies acute:, HEAD: Denies acute: photophobia Eyes: Denies acute: Double vision, vision loss, eye pain, eye discharge. EARS: Denies acute: tinnitus, hearing loss, ear discharge, ear pain, THROAT: Denies acute: sore throat, swelling, difficulty swallowing , pain with swallowing, change in voice. NECK: Denies acute: neck pain, neck swelling, stiff neck. HEART: Denies acute : chest pain, palpitations, LUNGS: Denies acute: SOB, wheezing, hemoptysis ABDOMEN: Denies acute: abdominal pain, Nausea, Vomiting, diarrhea, melena , hematemesis, hematochezia SKIN: Denies acute: rash, redness, lesions, itchiness. EXTREMITIES: Denies acute: calf pain, numbness, tingling, weakness, denies pain in extremity. Denies acute: Low back pain. Neuro: Denies acute: focal neurological deficit, motor or sensory focal neurological deficit, tremors, seizure like activity, confusion, dizziness, change in mental status, loss of bowel or bladder function, cauda equina like symptoms. : Denies acute: dysuria, hematuria, flank pain, increase in urinary frequency. PSYCH: Denies acute: hallucination, suicidal ideation, homicidal ideation. FEMALE: Denies acute: abnormal vaginal bleeding, foul odor, unusual discharge. PHYSICAL EXAM: General: ---mild-----acute distress, awake and alert. Head: normocephalic, atraumatic. Neck: supple, trachea is midline, no swelling. Throat: Normal phonation. Eyes:, no erythema, no purulent discharge, no proptosis, no icterus. Heart: regular rate, regular rhythm, no significant murmur appreciated. Lungs: no apparent respiratory distress, Able to speak in full sentences. No wheezing, no rhonchi, no crackles. No stridors Clear to auscultation bilaterally. Abdomen: non tender to palpation, non distended, soft, no guarding, no rebound, + bowel sounds. Neuro: Awake, Alert, oriented to name, self, situation, follows commands GCS=15. Speech is normal. Skin: no petechia, no purpura, no cyanosis, non-pale, not jaundice. Lower extremities: --no - Pitting edema no deformity, no focal swelling, no calf TTP. Makes eye contact. moves all four extremities. Face: no apparent facial droop. Ambulating in the ED independently. No nuchal rigidity, Kernig's sign, Brudzinski's sign, no meningeal signs. ED COURSE: Time Seen by MD: 15:00 Primary Care Provider: N/A Reviewed Notes: Nurses Notes, Medications, Allergies Allergies: Coded Allergies: NO KNOWN ALLERGIES (Unverified , 01/29/24) Home Meds Active Scripts Oseltamivir Phosphate (Tamiflu) 75 Mg Cap, 1 CAP PO BID for 5 Days, #10 CAP Prov:DANY VILLARREAL DO 07/26/24 Ibuprofen Micronized (Ibuprofen) 800 Mg Tab, 800 MG PO Q8HP PRN, #30 TAB prn pain Prov:ANAM NEVAREZ MD 07/25/24 Acetaminophen (Tylenol Extra Strength) 500 Mg Tab, 1000 MG PO Q6HP PRN, #30 TAB prn pain Prov:ANAM NEVAREZ MD 07/25/24 Tamsulosin Hcl (Flomax) 0.4 Mg Cap, 1 CAP PO DAILY, #10 CAP 11 Refills take 30 min after same meal daily Prov:LUPE PIERRE MD 03/31/24 Cephalexin Monohydrate (Cephalexin) 500 Mg Cap, 1 CAP PO QID for 10 Days, #40 CAP Prov:LUPE PIERRE MD 03/31/24 Cyclobenzaprine Hcl (Cyclobenzaprine Hcl) 10 Mg Tab, 10 MG PO TIDPRN PRN for 30 Days, #30 TAB Prov:JOSE GARCIA MD 02/06/24 Hydrocodone-Acetaminophen (Hydrocodone Bitartrate/AC 5-325 mg) 1 Tab Tab, 1 TAB PO Q6HPRN PRN for 30 Days, #30 TAB Prov:JOSE GARCIA MD 02/06/24 Information Source: Patient Mode of Arrival: Ambulatory Severity: Moderate Timing: Days Duration: Since onset, Days Prehospital treatment: None Past Medical History PAST MEDICAL HISTORY: Kidney Stones Surgical History: Denies all surgeries PAST DUE ACCOUNTS CLERK History: No Pertinent PAST DUE ACCOUNTS CLERK History Family History Family History: Reviewed,noncontributory to illness, Unknown Social History Smoker: Non-Smoker Alcohol: Occasionally Drugs: Denies Drug Use Lives In: Home Was a procedure done? Was a procedure done?: No Differential Dx Considerations may include: DDx include ACS, unstable angina, anxiety, PE, pneumothroax, neoplasm, cardiac ischemia, COPD, asthma, CHF, pleural effusion, tobacco abuse, pneumonia, hypoxia, hypercapnia, anemia., infection/sepsis., pulmonary edema. Asthma, Cardiac tamponade, infection. X-Ray, Labs, Meds, VS Vital Signs Date Time Temp Pulse Resp B/P (MAP) Pulse Ox O2 Delivery O2 Flow Rate FiO2 07/26/24 18:56 120 18 98 Room Air 07/26/24 18:38 98.7 07/26/24 18:31 100.6 120 18 118/42 (67) 98 100.6 07/26/24 15:26 18 97 Room Air 0 07/26/24 15:23 99.7 127 18 107/85 (92) 97 99.7 Lab Test 07/26/24 16:08 07/26/24 15:33 07/26/24 15:09 Range/Units White Blood Count 3.6 L 4.4-10.8 10^3/uL Red Blood Count 4.31 4.0-5.20 10^6/uL Hemoglobin 14.2 12.2-16.2 g/dL Hematocrit 41.5 36.0-46.0 % Mean Corpuscular Volume 96.3 80.0-100.0 fL Mean Corpuscular Hemoglobin 32.9 H 28.0-32.0 pg Mean Corpuscular Hemoglobin Concent 34.2 32.0-36.0 g/dL Red Cell Distribution Width 12.5 11.8-14.3 % Platelet Count 201 140-450 10^3/uL Mean Platelet Volume 7.4 6.9-10.8 fL Neutrophils (%) (Auto) 70.9 37.0-80.0 % Lymphocytes (%) (Auto) 15.9 10.0-50.0 % Monocytes (%) (Auto) 12.9 H 0.0-12.0 % Eosinophils (%) (Auto) 0.0 0.0-7.0 % Basophils (%) (Auto) 0.3 0.0-2.0 % Neutrophils # (Auto) 2.6 1.6-8.6 10 ^3/uL Lymphocytes # (Auto) 0.6 0.4-5.4 10 ^3/uL Monocytes # (Auto) 0.5 0-1.3 10 ^3/uL Eosinophils # (Auto) 0 0-0.8 10 ^3/uL Basophils # (Auto) 0 0-0.2 10 ^3/uL Nucleated Red Blood Cells 0.5 % Sodium Level 137 136-145 mmol/L Potassium Level 3.8 3.5-5.1 mmol/L Chloride Level 103 98-107 mmol/L Carbon Dioxide Level 26 20-31 mmol/L Anion Gap 8 5-15 Blood Urea Nitrogen 8 L 9-23 mg/dL Creatinine 0.61 0.550-1.02 mg/dL Glomerular Filtration Rate Calc 126 >90 mL/min BUN/Creatinine Ratio 13.1 10.0-20.0 Serum Glucose 88 74-106 mg/dL Lactic Acid Level 1.0 0.4-2.0 mmol/L Calcium Level 9.7 8.7-10.4 mg/dL Magnesium Level 1.9 1.6-2.6 mg/dL Total Bilirubin 0.4 0.2-1.0 mg/dL Aspartate Amino Transferase (AST) 14 13-40 U/L Alanine Aminotransferase (ALT) 19 7-40 U/L Alkaline Phosphatase 82 46-116 U/L Troponin I High Sensitivity 4 </=34 ng/L Total Protein 7.5 5.7-8.2 g/dL Albumin 5.0 H 3.2-4.8 g/dL Monoscreen Negative Influenza Type A Antigen Positive Negative Influenza Type B Antigen Negative Negative SARS-CoV-2 Antigen (Rapid) Negative NEGATIVE Urine Color Light-yellow Yellow Urine Clarity Clear Clear Urine pH 6.0 5.0-9.0 Urine Specific [place] 1.024 1.001-1.035 Urine Protein Trace H Negative Urine Ketones Negative Negative Urine Blood 1+ H Negative /uL Urine Nitrite Negative Negative Urine Bilirubin Negative Negative Urine Urobilinogen Normal Negative mg/dL Urine Leukocyte Esterase Negative Negative /uL Urine RBC 9 0 - 4 /hpf Urine Microscopic WBC 3 0-5 /HPF Urine Squamous Epithelial Cells Few <5 /hpf Urine Calcium Oxalate Crystals Few None Seen Urine Bacteria None seen None Seen /hpf Urine Mucus Few None Seen Urine Glucose Normal Normal mg/dL Urine Test Negative Negative Current Medications Medications (Trade) Dose Ordered Sig/Pedro Route Start Time Stop Time Status Last Admin Sodium Chloride 1,000 ml @ 1,000 mls/hr Q1H ONCE IV 07/26/24 18:00 07/26/24 18:59 DC 07/26/24 18:39 Acetaminophen (Tylenol Tablet) 650 mg ONCE ONCE PO 07/26/24 18:00 07/26/24 18:10 DC 07/26/24 18:38 Oseltamivir Phosphate (Tamiflu 75MG Capsule) 75 mg ONCE ONCE PO 07/26/24 18:45 07/26/24 18:46 DC 07/26/24 18:41 [place] [id number] Ph: [phone] DIAGNOSTIC IMAGING Diagnostic Imaging Report : [id number] Signed PATIENT: BENTLEY BURNS ACCT: [id number] UNIT: [id number] : 1995 LOC: ER ROOM / BED: / AGE / SEX: 28 / F ADM STATUS: REG ER SERVICE [id number] ORDERING PHYSICIAN: DANY VILLARREAL DO PROCEDURE(s): CXRP - CHEST PORTABLE REASON: Cough congestion body aches vital syndrome ORDER NUMBER(s): [id number], ACCESSION NUMBER(s): [id number] EXAM: XY CHEST PORTABLE TECHNIQUE: Single frontal chest radiograph CLINICAL HISTORY: Cough congestion body aches vital syndrome COMPARISON: None Findings/Impression: Frontal chest radiograph demonstrates no acute osseous or superficial soft tissue abnormalities. The trachea is midline. The cardiac silhouette and mediastinum are within normal limits. No pneumothorax, pleural effusions, or consolidations. ATED BY: CHAYA PAREKH DO DICTATED DATE/TIME: 07/26/241628 SIGNED BY: CHAYA PAREKH DO SIGNED DATE/TIME: 07/26/241628 CC: Time of 1ST Reevaluation: 15:30 Reevaluation 1ST: Unchanged Patient Education/Counseling: Diagnosis, Treatment, Prognosis Family Education/Counseling: No Family Present Comments Patient presented with the above HPI.------workup was initiated. patient was found with the above mentioned diagnosis. the following medications were ordered: please refer to order lists of meds and tests obtained by myself Dr. Villarreal. Patient ED course and VS have been stabilized. Patient has been reassessed in the ED and remained in a stable condition. Pertinent incidental findings were discussed with the patient and/or family. Patient/family voices understanding and is agreeable with plan. Patient has been observed in the ED adequate length of time to insure improvement/stability. Escalation of care considered: Consideration of escalation to observation or admission Patient was DISCHARGED home in a stable condition. All the reports of any imaging studies that were ordered by myself were reviewed by myself. Departure 1 Departure Time of Disposition: 18:00 Impression: Primary Impression: Influenza A Disposition: 01 HOME / SELF CARE / HOMELESS Condition: Stable Additional Instructions: Additional discharge instructions: You MUST follow-up with your primary care/family doctor in 1 to 2 days. If you are unable to see your primary care/family doctor, please return to our emergency room for re-assessment and re-evaluation in 1 to 2 days. Return to the emergency room here in our facility or to the nearest ER [facility] if your symptoms change or worsen. Adequate fluid hydration. You are contagious. Please wear a mask at all times. Practice good hygiene. e-Prescriptions Oseltamivir Phosphate (Tamiflu) 75 Mg Cap 1 CAP PO BID for 5 Days, #10 CAP Prov: DANY VILLARREAL DO 07/26/24 Discharged With: Self Critical Care Note Critical Care Time?: No I personally scribed for DANY VILLARREAL DO ([email or web address]) on 07/26/24 at 15:08. Electronically submitted by Pj Aguilar ([email or web address]). DANY VILLARREAL DO Jul 26, 2024 15:08
[2024-07-26 15:40] LABS: Urine Bacteria None Seen /hpf (None Seen)
[2024-07-26 16:16] LABS: Urine Blood 1+ /uL (Negative); Urine Clarity Clear (Clear); Urine Color Light-Yellow (Yellow); Urine Mucus FEW (None Seen); Urine Protein, UAD TRACE (Negative); Urine Specific Gravity 1.024 (1.001-1.035); Urine Squamous Epithelial Cell FEW /hpf (<5); Urine Urobilinogen Normal (Negative); Urine WBC 3 /HPF (0-5)
--- NOTE | 2024-07-26 16:31 | DVH ---
EXAM: XY CHEST PORTABLE TECHNIQUE: Single frontal chest radiograph CLINICAL HISTORY: Cough congestion body aches vital syndrome COMPARISON: None Findings/Impression: Frontal chest radiograph demonstrates no acute osseous or superficial soft tissue abnormalities. The trachea is midline. The cardiac silhouette and mediastinum are within normal limits. No pneumothorax, pleural effusions, or consolidations.
[2024-07-26 16:32] LABS: Basophils # (auto) 0 10 ^3/uL (0-0.2); Basophils % (auto) 0.3 % (0.0-2.0); Eosinophils # (auto) 0 10 ^3/uL (0-0.8); Hematocrit 41.5 % (36.0-46.0); Hemoglobin 14.2 g/dL (12.2-16.2); Lymphocytes # (auto) 0.6 10 ^3/uL (0.4-5.4); Lymphocytes % (auto) 15.9 % (10.0-50.0); Mean Corpuscular Hemoglobin 32.9 pg (28.0-32.0); Mean Corpuscular Hgb Conc. 34.2 g/dL (32.0-36.0); Mean Corpuscular Volume 96.3 fL (80.0-100.0); Monocytes # (auto) 0.5 10 ^3/uL (0-1.3); Monocytes % (auto) 12.9 % (0.0-12.0); Neutrophils # (auto) 2.6 10 ^3/uL (1.6-8.6); Neutrophils % (auto) 70.9 % (37.0-80.0); Nucleated Red Blood Cells % 0.5 %; Platelet Count (auto) 201 10^3/uL (140-450); Red Blood Cells 4.31 10^6/uL (4.0-5.20); Red Cell Distribution Width 12.5 % (11.8-14.3); White Blood Cell 3.6 10^3/uL (4.4-10.8)
[2024-07-26 16:36] LABS: COVID19 ANTIGEN SOFIA FIA NEGATIVE (NEGATIVE); Rapid Influenza B Negative (Negative)
[2024-07-26 16:37] LABS: Alanine Aminotransferase 19 U/L (7-40); Alkaline Phosphatase 82 U/L (46-116); Anion Gap 8 (5-15); Aspartate Aminotransferase 14 U/L (13-40); BUN/Creatinine Ratio 13.1 (10.0-20.0); Calcium 9.7 mg/dL (8.7-10.4); Carbon Dioxide 26 mmol/L (20-31); Chloride 103 mmol/L (98-107); Glucose 88 mg/dL (74-106); Magnesium 1.9 mg/dL (1.6-2.6); Potassium 3.8 mmol/L (3.5-5.1); Sodium 137 mmol/L (136-145); Total Protein 7.5 g/dL (5.7-8.2)
[2024-07-26 16:38] LABS: Bilirubin, Total 0.4 mg/dL (0.2-1.0)
[2024-07-26 16:38] LABS: Rapid Influenza A Positive (Negative)
[2024-07-26 16:44] LABS: Blood Urea Nitrogen 8 mg/dL (9-23)
[2024-07-26] MEDS ORDERED: OSEL75CA5 PO (18:03)
[2024-07-26 18:31] VITALS: BP 118/42
[2024-07-26 18:38] VITALS: TEMP 98.7
[2024-07-26] MEDS: ACETAMINOPHEN 325 MG TAB PO ONE (18:38)
[2024-07-26] MEDS: SODIUM CHLORIDE 0.9% 1,000 ML IV ONE (18:39)
[2024-07-26] MEDS: OSELTAMIVIR 75 MG CAP PO ONE (18:41)
[2024-07-26 18:56] VITALS: PULSE 120; RESP 18; O2SAT 98
== END 2024-07-26 19:21 | disposition home or self-care (01) ==
LOC: ER 14:56
DX: J10.1 Influenza due to other identified influenza virus with other respiratory manifestations (principal); Z20.822 Contact with and (suspected) exposure to COVID-19; Z79.899 Other long term (current) drug therapy
CPT/HCPCS: 36415; 71045; 80053; 81001; 81025; 83605; 83735; 84484; 85025; 86308; 87426; 87804; 96360; 99284; J7030